=== PATIENT | male | born 1975 | race American Indian/Alaskan Native ===

== ENCOUNTER 2021-05-28 10:42 | Emergency (ER) | payer SELFPAY ==
[2021-05-28 11:13] VITALS: BP 137/93
--- NOTE | 2021-05-28 11:14 | Emergency Department Report ---
HPI - General Chief Complaint: Wound/Laceration Time Seen by Provider: 05/28/21 10:50 - HPI HPI: 46-year-old -[place] male presents to the emergency department with 3 complaint of a laceration to the right anterior thigh that occurred just prior t o presentation when he accidentally struck himself with a track grinder. Patient was driven in through triage. He denies any past medical history. He has some mild pain to the thigh at the area of the laceration. He denies any numbness or focal or lateralizing weakness. He denies any past medical history. Unknown last tetanus vaccination. ED Past Medical Hx - Medications Home Medications: Home Medications Medication Instructions Recorded Confirmed Last Taken Type HYDROcodone/APAP 5-325 [[place] 1 each PO Q6HR PRN #12 tablet 05/28/21 Unknown Rx 5/325] Sulfamethoxazole/Trimethoprim 1 each PO BID #14 tablet 05/28/21 Unknown Rx [Bactrim DS TAB] ED Review of Systems ROS: Stated complaint: LACERATION Other details as noted in HPI Comment: All other systems reviewed and negative Constitutional: denies: chills, fever Musculoskeletal: myalgia (Right thigh pain at area of laceration). denies: joint swelling Skin: other (Right thigh laceration). denies: rash Neurological: denies: numbness, paresthesias Physical Exam - Physical Exam Physical Exam: GENERAL: The patient is well-developed well-nourished. HENT: Normocephalic. Atraumatic. Patient has moist mucous membranes. EYES: Extraocular motions are intact. NECK: Supple. Trachea is midline. CHEST/LUNGS: Clear to auscultation. There is no respiratory distress noted. HEART/CARDIOVASCULAR: Regular. There is no tachycardia. There is no murmur. ABDOMEN: Abdomen is soft, nontender. Patient has normal bowel sounds. SKIN: Skin is warm and dry. There is a 10 cm laceration to the anterior mid to proximal right thigh. It goes down through the subcutaneous tissue and adipose tissue. I can see a very small area of muscle avulsion in the middle of a muscle belly but it does not appear to transect any particular muscle. The laceration has about a 1 inch gap between its edges. Very mild venous oozing of blood. NEURO: The patient is awake, alert, and oriented. The patient is cooperative. The patient has no focal neurologic deficits. Normal speech. MUSCULOSKELETAL: There is some mild tenderness to palpation to the right anterior thigh where the patient has a laceration. There is no limitation range of motion. - Laceration /Wound Repair Right Thigh Wound Location: lower extremity (Right anterior mid to proximal thigh) Wound Length (cm): 10 Wound's Depth, Shape: superficial (It is mostly superficial into the subcutaneous and adipose tissue but there is a small amount of involvement of the anterior thigh muscle) Wound Explored: no foreign body removed Irrigated w/ Saline (ccs): 200 Anesthesia: 1% Lidocaine Volume Anesthetic (ccs): 10 Wound Repaired With: sutures Suture Size/Type: 3:0, proline Number of Sutures: 15 (4 horizontal mattress, 11 simple interrupted) Layer Closure?: No Sterile Dressing Applied?: Yes ED Medical Decision Making - Radiology Data Radiology results: report reviewed RIGHT FEMUR 4 VIEW(S) INDICATION / CLINICAL INFORMATION: Right thigh wound COMPARISON: None available. FINDINGS: BONES / JOINT(S): No acute fracture or subluxation. No significant arthritis. SOFT TISSUES: No significant abnormality. ADDITIONAL FINDINGS: There are couple of small calcifications noted within the right hemiscrotum measuring approximately 3 and 6 mm respectively. These are of indeterminate clinical significance and could be further evaluated with scrotal ultrasound in the outpatient setting. - Medical Decision Making This patient presents with a right thigh laceration that occurred just prior to presentation while using a metal caster. There is about a 10 cm laceration that goes down through the subcutaneous tissue and adipose tissue. There is a very small amount of muscle involvement but no large muscle belly laceration. The area was cleaned out with about 200 cc of sterile saline. An x-ray was done that did not show any fracture or evidence of foreign body within the thigh. Radiology mentioned that there are some small densities seen in the right hemiscrotum that may need outpatient evaluation. However the patient has no complaints of any pain to the scrotum or any evidence that there was a wound there. The laceration was repaired as per the procedure section. The patient was given a dose of analgesia, IV antibiotics and a tetanus booster. We discussed monitoring for signs/symptoms of infection. He understands to try to avoid any significant tension on the thigh and therefore sutures. He has been given an outpatient referral for an orthopedist. The patient has been given a prescription for antibiotics and pain medication. He will return to the emergency department with any worsening of his symptoms or with any acute distress. Critical Care Time: No Critical care attestation.: If time is entered above; I have spent that time in minutes in the direct care of this critically ill patient, excluding procedure time. ED Disposition Clinical Impression: Laceration of right thigh Qualifiers: Encounter type: initial encounter Qualified Code(s): S71.111A - Laceration without foreign body, right thigh, initial encounter Disposition: HOME / SELF CARE / HOMELESS Is pt being admited?: No Condition: Stable Instructions: Laceration Care, Adult, Sutured Wound Care Additional Instructions: Please follow-up with a primary care physician in the next few days. I have given you a referral for a local primary care physician, Dr. Norman, and a primary care clinic, [facility]. I am giving you a referral for a local orthopedist, Dr. Rosenthal, to follow-up with in case you have continued right thigh/leg pain. The sutures will need to be removed in about 7 to 10 days. This can be done at a primary care office, urgent care, or back in the emergency department. Please monitor for signs/symptoms of infection such as increased pain, increased swelling, surrounding redness, development of fever or discharge of pus. You have been prescribed a medication that is sedating and therefore should not be taken prior to driving, working, and responsible for children and in no way should be mixed with alcohol of any quantity. Return to the emergency department with any worsening of your symptoms, new or concerning symptoms not addressed during this current emergency department visit, or with any acute distress. Prescriptions: Sulfamethoxazole/Trimethoprim [Bactrim DS TAB] 1 each PO BID #14 tablet HYDROcodone/APAP 5-325 [[place] 5/325] 1 each PO Q6HR PRN #12 tablet PRN Reason: Pain Referrals: PRIMARY CAREMD [Primary Care Provider] - 3-5 Days FRANCISCA ROSENTHAL MD [Staff Physician] - 3-5 Days Time of Disposition: 13:15
[2021-05-28] MEDS ORDERED: LIDOCAINE (1%) 10 MG/1 ML VIAL 20 ML MDV INFILTRATI SCH (11:30)
[2021-05-28] MEDS ORDERED: MORPHINE 4 MG/1 ML INJ IV ONE (11:41)
--- NOTE | 2021-05-28 11:43 | XRay Report ---
RIGHT FEMUR 4 VIEW(S) INDICATION / CLINICAL INFORMATION: Right thigh wound COMPARISON: None available. FINDINGS: BONES / JOINT(S): No acute fracture or subluxation. No significant arthritis. SOFT TISSUES: No significant abnormality. ADDITIONAL FINDINGS: There are couple of small calcifications noted within the right hemiscrotum roberto uring approximately 3 and 6 mm respectively. These are of indeterminate clinical significance and cou ld be further evaluated with scrotal ultrasound in the outpatient setting. Signer Name: Bolivar Salazar MD Signed: 05/28/2021 11:38 AM Workstation Name: [email or web address]
[2021-05-28] MEDS ORDERED: TETANUS,DIPH,PERTUSS(ACELL) VACCINE 0.5 ML SYRINGE IM ONE (12:00)
== END 2021-05-28 13:41 | disposition home or self-care (01) ==
LOC: ED 10:42
DX: S71.111A Laceration without foreign body, right thigh, initial encounter (principal); W45.8XXA Other foreign body or object entering through skin, initial encounter; Y93.89 Activity, other specified; Y92.89 Other specified places as the place of occurrence of the external cause; Y99.8 Other external cause status
CPT/HCPCS: 12004; 73552; 90471; 90715; 96365; 96375; 99283; J0690; J2270; J3490

== ENCOUNTER 2021-06-16 14:51 | Emergency (ER) | payer SELFPAY ==
--- NOTE | 2021-06-16 16:41 | Emergency Department Report ---
Suture/Staple Removal - [facility] Chief Complaint: Laceration/Recheck/Suture Stated Complaint: SR Time Seen by Provider: 06/16/21 16:27 When Sutures or Lu Placed: >14 Days Ago Wound Location: Right anterior thigh ED Review of Systems ROS: Stated complaint: SR Other details as noted in HPI ED Past Medical Hx - Social History Smoking Status: Never Smoker Substance Use Type: None - Medications Home Medications: Home Medications Medication Instructions Recorded Confirmed Last Taken Type HYDROcodone/APAP 5-325 [[place] 1 each PO Q6HR PRN #12 tablet 05/28/21 Unknown Rx 5/325] Sulfamethoxazole/Trimethoprim 1 each PO BID #14 tablet 05/28/21 Unknown Rx [Bactrim DS TAB] Suture Removal Exam - Exam General: Vital signs noted. No distress. Alert and acting appropriately. Other Systems: All other systems reviewed and are unremarkable. ED Course Vital Signs 06/16/21 16:08 Temperature 98.3 F Pulse Rate 98 H Respiratory 17 Rate Blood Pressure 142/83 [Right] O2 Sat by Pulse 98 Oximetry ED Recheck [facility] - Medical Decision Making 1655: All sutures removed by me. Patient tolerated well without complication. Wound healing well without any signs of infection. No wound dehiscence. Wound care discussed with patient. Patient stable at time of discharge. Critical care attestation.: If time is entered above; I have spent that time in minutes in the direct care of this critically ill patient, excluding procedure time. ED Disposition Clinical Impression: Encounter for removal of sutures Disposition: 01 HOME / SELF CARE / HOMELESS Is pt being admited?: No Does the pt Need Aspirin: No Condition: Stable Instructions: Wound Closure Removal, Care After Additional Instructions: I recommend that he continue keeping wound clean with soap and water. Dry well. You can apply Neosporin after each cleaning and I will do this for about 1 week. Follow-up with your primary care doctor as needed. Return to the ER if symptoms changes or worsens. Referrals: PRIMARY CARE, [Primary Care Provider] - 3-5 Days Time of Disposition: 16:43
[2021-06-16 18:55] VITALS: BP 136/80
== END 2021-06-16 17:20 | disposition home or self-care (01) ==
LOC: ED 14:51
DX: Z48.02 Encounter for removal of sutures (principal)